=== PATIENT | female | born 1940 | race Caucasian/White ===

== ENCOUNTER 2022-10-31 18:35 | Emergency (ER) | payer BC ==
[~2022-10-31] VITALS: Ht 154.9 cm; Wt 64.0 kg
--- NOTE | 2022-10-31 19:10 | NUR ---
attempt ekg, pt in ct at the moment.
[2022-10-31 19:13] LABS: BASOPHILS % (AUTO) 0.5 % (0-1); EOSINOPHILS # (AUTO) 0.1 X10'3 (0-0.9); EOSINOPHILS % (AUTO) 1.5 % (0-6); HEMATOCRIT 41.4 % (35.0-45.0); HEMOGLOBIN 14.3 g/dl (12.0-16.0); LYMPHOCYTES # (AUTO) 2.3 X10'3 (1.1-4.8); LYMPHOCYTES % (AUTO) 30.7 % (21-51); MEAN CORPUSCULAR HEMOGLOBIN 32.2 PG (27.0-31.0); MEAN CORPUSCULAR HGB CONC 34.5 g/dL (33.0-36.5); MEAN CORPUSCULAR VOLUME 93.4 FL (78-98); MEAN PLATELET VOLUME 7.5 FL (7.4-10.4); MONOCYTES # (AUTO) 0.7 X10'3 (0-0.9); MONOCYTES % (AUTO) 9.4 % (2-12); NEUTROPHILS # (AUTO) 4.3 X10'3 (1.8-7.7); NEUTROPHILS % (AUTO) 57.9 % (42-75); PLATELET COUNT 367 X10'3 (140-440); RED BLOOD COUNT 4.43 X10'6 (4.20-5.60); RED CELL DISTRIBUTION WIDTH 13.2 % (11.5-14.5); WHITE BLOOD COUNT 7.5 X10'3 (4.5-11.0)
[2022-10-31 19:20] LABS: APTT 29 SECONDS (22-32)
[2022-10-31 19:21] LABS: ALANINE AMINOTRANSFERASE 39 U/L (12-78); ALBUMIN/GLOBULIN RATIO 1.2 (1.1-1.5); ALKALINE PHOSPHATASE 116 IU/L (46-116); ANION GAP 7 (8-16); ASPARTATE AMINO TRANSFERASE 29 U/L (10-37); BILIRUBIN,TOTAL 0.4 MG/DL (0.1-1.0); BLOOD UREA NITROGEN 15 MG/DL (7-18); BUN/CREATININE RATIO 25.9 (10.0-20.0); CALCIUM 9.2 MG/DL (8.5-10.1); CHLORIDE 98 MMOL/L (99-107); CREATININE 0.58 MG/DL (0.40-0.90); GLUCOSE 107 MG/DL (70-104); POTASSIUM 3.8 MMOL/L (3.5-5.1); SODIUM 133 MMOL/L (135-145); TOTAL CARBON DIOXIDE 27.8 MMOL/L (24-32); TOTAL PROTEIN 7.3 G/DL (6.4-8.2); eGFR > 90 ML/MIN
[2022-10-31] MEDS ORDERED: amox tr/potassium clavulanate 875/125mg TAB PO ONE (19:55)
[2022-10-31] MEDS ORDERED: HYDROcodone/acetaminophen 10/325mg tab PO ONE (19:55)
[2022-10-31] MEDS ORDERED: LIDOcaine 1% W/epiNEPHrine 1:100,000 20ml vial SQ ONE (20:05)
[2022-10-31] MEDS ORDERED: LIDOCAINE 2%/EPI 1:100,000 inj. Multi-dose 20 ML VIAL SQ ONE (20:20)
[2022-10-31] MEDS ORDERED: HYDR-3973 PO (22:31)
[2022-10-31 22:34] VITALS: BP 136/63
[2022-10-31] MEDS ORDERED: AMOX-117 PO (22:36)
== END 2022-10-31 23:01 | disposition home or self-care (01) ==
LOC: ER 18:37
DX: S02.5XXA Fracture of tooth (traumatic), initial encounter for closed fracture (principal); S01.511A Laceration without foreign body of lip, initial encounter; S61.215A Laceration without foreign body of left ring finger without damage to nail, initial encounter; S00.81XA Abrasion of other part of head, initial encounter; S00.31XA Abrasion of nose, initial encounter; S09.90XA Unspecified injury of head, initial encounter; W19.XXXA Unspecified fall, initial encounter; Z91.81 History of falling; Z79.899 Other long term (current) drug therapy; Y93.89 Activity, other specified; Y92.488 Other paved roadways as the place of occurrence of the external cause; Y99.8 Other external cause status
CPT/HCPCS: 12001; 36415; 40650; 70450; 71045; 72125; 80053; 82948; 85025; 85610; 85730; 93005; 99285; A6449

== ENCOUNTER 2022-11-07 07:05 | Emergency (ER) | payer MEDICARE, BC ==
[~2022-11-07] VITALS: Ht 156.8 cm; Wt 67.4 kg
[~2022-11-07 07:05] MED LIST: AMOX-117 PO; HYDR-3973 PO
== END 2022-11-07 09:25 | disposition home or self-care (01) ==
LOC: ER 07:06
DX: S01.511D Laceration without foreign body of lip, subsequent encounter (principal); X58.XXXD Exposure to other specified factors, subsequent encounter
CPT/HCPCS: 99284

== ENCOUNTER 2022-11-14 14:32 | Emergency (ER) | payer MEDICARE, BC ==
[~2022-11-14] VITALS: Ht 154.9 cm; Wt 65.0 kg
[~2022-11-14 14:32] MED LIST changes: -AMOX-117 PO
[2022-11-14 14:41] VITALS: BP 175/83
== END 2022-11-14 14:55 | disposition home or self-care (01) ==
LOC: ER 14:33
DX: S61.215D Laceration without foreign body of left ring finger without damage to nail, subsequent encounter (principal); Z48.02 Encounter for removal of sutures; X58.XXXD Exposure to other specified factors, subsequent encounter
CPT/HCPCS: 99282

== ENCOUNTER 2024-03-14 09:21 | Day surgery (SDC) | payer MEDICARE, BC ==
[2024-03-13 16:15] LABS: BASOPHILS # (AUTO) 0.1 X10'3 (0-0.2); EOSINOPHILS # (AUTO) 0.1 X10'3 (0-0.9); EOSINOPHILS % (AUTO) 1.2 % (0-6); LYMPHOCYTES # (AUTO) 2.6 X10'3 (1.1-4.8); LYMPHOCYTES % (AUTO) 22.7 % (21-51); MEAN CORPUSCULAR HEMOGLOBIN 32.1 PG (27.0-31.0); MEAN CORPUSCULAR HGB CONC 33.3 g/dL (33.0-36.5); MEAN CORPUSCULAR VOLUME 96.6 FL (78-98); MEAN PLATELET VOLUME 7.4 FL (7.4-10.4); MONOCYTES % (AUTO) 8.7 % (2-12); NEUTROPHILS # (AUTO) 7.5 X10'3 (1.8-7.7); NEUTROPHILS % (AUTO) 66.4 % (42-75); PRE OP HEMATOCRIT 40.7 % (35.0-45.0); PRE OP HEMOGLOBIN 13.5 g/dL (12.0-16.0); PRE OP PLATELET COUNT 434 X10'3 (140-440); PRE OP WHITE BLOOD COUNT 11.4 10'3 (4.8-10.8); RED BLOOD COUNT 4.21 X10'6 (4.20-5.60); RED CELL DISTRIBUTION WIDTH 13.2 % (11.5-14.5)
[2024-03-13 16:18] LABS: ALBUMIN/GLOBULIN RATIO 1.2 (1.1-1.5); ALKALINE PHOSPHATASE 89 IU/L (46-116); BLOOD UREA NITROGEN 18 MG/DL (7-18); BUN/CREATININE RATIO 38.3 (10.0-20.0); CALCIUM 9.4 MG/DL (8.5-10.1); CHLORIDE 100 MMOL/L (99-107); CREATININE 0.47 MG/DL (0.40-0.90); PRE OP ALT 30 U/L (30-65); PRE OP ANION GAP 12 (8-16); PRE OP AST 21 U/L (10-37); PRE OP BILIRUB, TOTAL 0.4 MG/DL (0.0-1.0); PRE OP GLUCOSE 93 MG/DL (70-104); PRE OP POTASSIUM 3.7 MMOL/L (3.4-5.1); PRE OP SODIUM 135 MMOL/L (135-145); TOTAL CARBON DIOXIDE 23.5 MMOL/L (24-32); TOTAL PROTEIN 7.4 G/DL (6.4-8.2); eGFR > 90 ML/MIN
[2024-03-14] VITALS (12 sets, daily range): BP systolic 138–177; BP diastolic 55–87; PULSE 52–84; RESP 10–17; TEMP 98.1; O2SAT 95–100
[~2024-03-14] VITALS: Ht 152.4 cm; Wt 60.0 kg
[2024-03-14] MEDS: famotidine 20mg tablet PO ONE (05:30)
[2024-03-14] MEDS: cefazolin 2gm/D5W 100mL 100 ML IV ONE (05:30)
[~2024-03-14 09:21] MED LIST changes: +ACET-2971 PO; +AMLO-139 PO; +CELE-148 PO; +CHOL500061 PO; +GABA-530 PO; -HYDR-3973 PO; +LACT1CAP65 PO; +VIT B1 PO; +ringers solution, lacted 1,000 ML IV SCH
[2024-03-14] MEDS ORDERED: fentaNYL/PF 50MCG/1 ML 2ML syringe ONE (10:22)
[2024-03-14] MEDS ORDERED: methylene blue (5mg/ml) 50mg/10ml ampul IV ONE (10:26)
[2024-03-14] MEDS ORDERED: sevoflurane 250ml liquid IH ONE (10:53)
[2024-03-14] MEDS: BUPIVAcaine 2.5mg/ml inj 50ml vial (contains preservative) ONE (11:52)
[2024-03-14] MEDS: LIDOcaine 1% (10mg/ml)w/preservative inj. 20ml MDV ONE (11:52)
[2024-03-14] MEDS ORDERED: ringers solution, lacted 1,000 ML IV SCH (12:10)
[2024-03-14] MEDS ORDERED: ondansetron/PF 4mg/2ml inj IV PRN (12:10)
[2024-03-14] MEDS ORDERED: HYDROmorphone/PF 0.2 MG/ML SYRINGE IV PRN ×2 (12:10)
== END 2024-03-14 14:33 | disposition home or self-care (01) ==
LOC: PAS 09:21
PROVIDERS: ATTEND Surgery
DX: D05.12 Intraductal carcinoma in situ of left breast (principal); I49.3 Ventricular premature depolarization; I10 Essential (primary) hypertension; I25.2 Old myocardial infarction; Z86.73 Personal history of transient ischemic attack (TIA), and cerebral infarction without residual deficits; Z79.899 Other long term (current) drug therapy; Z90.89 Acquired absence of other organs; Z98.890 Other specified postprocedural states
CPT/HCPCS: 19301; 36415; 76098; 80053; 82948; 85025; 88341; 93005; A4215; A4618; A6258; A7000; J0690; J1100; J1885; J2001; J2405; J2704; J3010; J3490; J7030; J7120; Z7506; Z7508; Z7512; Z7610; 88307; 88342; Q9968

== ENCOUNTER → 2025-03-01 | Emergency (ER) | payer MEDICARE, BC ==
[~2025-03-01] VITALS: Ht 152.4 cm; Wt 62.6 kg
[~2025-03-01] MED LIST changes: -ringers solution, lacted 1,000 ML IV SCH
[2025-03-01 14:39] VITALS: TEMP 97.9
--- NOTE | 2025-03-01 16:12 | VASCULAR REPORT ---
Technique: Real-time ultrasound imaging, with color Doppler and compression of the left common femor al vein, femoral vein, greater saphenous vein, and popliteal vein. Indication: Calf, knee pain Comparison: None Findings: There is normal compressibility and flow augmentation in all of the imaged deep veins. There are no f illing defects. Impression: No evidence of DVT in the left lower extremity.
--- NOTE | 2025-03-01 16:24 | Physician Documentation ---
History of Present Illness ~ Chief Complaint: Leg Pain Stated Complaint: DR FREIRE, BLOOD CLOT IN LEG Time Seen by MD: 15:35 OK to notify your PCP?: Yes Primary Medical Doctor: none Source: patient Mode of Arrival: POV Exam Limitations: no limitations HPI 84-YEAR-OLD FEMALE WITH CHIEF COMPLAINT LEFT CALF PAIN WHICH SHE STATES HAS BEEN ONGOING FOR ABOUT A WEEK NOW. SHE HAS NO HISTORY OF DVT BUT SHE STARTED TO GET CONCERNED THAT SHE MAY HAVE A DVT BECAUSE SHE CAN NOT FIGURE OUT WHY SHE IS HAVING PAIN IN HER CALF. SHE STATES THE PAIN IS NOT WORSE WITH AMBULATION PAIN IS NOT WORSE WITH PALPATION. SHE DOES REPORT CHRONIC BACK PAIN AND HAVING MORE PAIN IN HER HIP AND LEG OVERALL. NO CLUMSINESS OF HER LEG, URINARY RETENTION, BOWEL OR BLADDER INCONTINENCE. Tetanus witin 5 years: Yes Medication Reconciliation Allergies: Coded Allergies: No Known Allergies (Unverified , 11/07/22) Scheduled Amlodipine Besylate/Benazepril 10/40 MG* (Amlodipine-Benazepril 10/40 MG*), 1 CAP PO DAILY, (Reported) Celecoxib (Celecoxib), 1 CAP PO DAILY, (Reported) Cholecalciferol (Vitamin D3) (Vitamin D3), 1 TAB PO DAILY, (Reported) Gabapentin (Gabapentin), 1 CAP PO HS, (Reported) Lactobacillus Acidophilus (Probiotic), 1 EACH PO DAILY, (Reported) [Vit B1], 2,500 MCG PO DAILY, (Reported) Scheduled PRN Acetaminophen (Tylenol Arthritis), 1 TAB PO Q6H PRN for pain, (Reported) Past Medical History Past Medical History: No Pertinent History Past Surgical History: noncontributory Lives with: Spouse Lives In: Home Review of Systems All Other Systems at this time: Reviewed and Negative Physical Exam Vital Signs: Temperature: 97.9, Source: Oral, Heart Rate: 63, Respiratory Rate: 17, BP: 112/55, Pulse Oximetry: 95, Weight: 62.600 Oxygen Flow Rate: 0 Physical Exam GENERAL: Alert, no acute distress. HEENT: NCAT, EOMI, PERRL, normal oropharynx, moist oral mucosa. NECK: Supple, trachea midline. CARDIAC: Regular rate and rhythm, no murmurs, rubs, or gallops. Equal distal pulses. No lower extremity edema, cap refill less than 2 seconds. NO LEFT CALF TTP, NEGATIVE JUNIOR'S SIGN. NORMAL SKIN COLOR OF LE. RESPIRATORY: Equal breath sounds, clear to auscultation bilaterally, no respiratory distress. MUSCULOSKELETAL: SCAR OVER LEFT KNEE FROM PRIOR SURGERY. Normal range of motion OF LEFT HIP, KNEE AND ANKLE, nontender, no swelling. Normal gait. NEUROLOGICAL: Awake, alert, and oriented x 3. SKIN: Warm/dry, no pallor, no rash. PSYCH: Alert and appropriate. Affect congruent with mood. Speech is clear. Good eye contact. Progress Results/Orders Results/Orders Vital Signs 03/01/25 03/01/25 03/01/25 14:39 15:56 16:32 Temp 97.9 Pulse 70 63 61 Resp 16 17 14 B/P (MAP) 154/54 112/55 (74) 124/55 Pulse Ox 98 95 95 O2 Flow Rate 0 Medical Decision Making General Diff Dx:Considerations: Include: Abrasion, Contusion, Fracture, Hematoma, Laceration, Malunion, Neurovascular injury, Open fracture, Sprain, Ulcer Departure Time of Disposition: 18:58 Disposition: 01 HOME / SELF CARE / HOMELESS Impression: Primary Impression: Pain of left calf Condition: Stable Discharge Instructions: General Discharge Instructions Additional Instructions: F/U WITH PCP ABOUT CAUSE OF PAIN BUT NO EVIDENCE FOR DVT, CELLULITIS, TEAR OF CALF MUSCLE. SUSPECT PAIN REFERRED FROM LOWER BACK PAIN SINCE YOU REPORT CHRONIC BACK PAIN AND HAVING MORE PAIN IN LEFT LEG OVERALL. Referrals: NO PRIMARY CARE PROVIDER (PCP) Education Educated: Patient Educated regarding: diagnosis, treatment, need for follow up Signature Scribe Signature: X Attestation: KEARA SHARIF Mar 01, 2025 16:24
[2025-03-01 16:32] VITALS: BP 124/55; PULSE 61; RESP 14; O2SAT 95
== END | disposition home or self-care (01) ==
LOC: ER 14:33
DX: M79.662 Pain in left lower leg (principal); Z79.899 Other long term (current) drug therapy
CPT/HCPCS: 93971; 99284; C1758